=== PATIENT | female | born 1935 | race Hispanic/Latino ===

== ENCOUNTER 2017-10-12 17:43 | Emergency (ER) | payer MEDICAID, OTHER ==
[~2017-10-12 17:43] MED LIST: AMLO10TA4 PO; ASPI-1005 PO; BENA40TA3 PO; METO25TA6 PO; METO50TA18 PO; WARF3TAB59 PO; WARF4TAB72 PO
[2017-10-12 18:31] LABS: APPEARANCE,URINE Clear (CLEAR); BILIRUBIN,URINE Negative (NEGATIVE); COLOR,URINE Yellow (YELLOW); GLUCOSE, URINE (UA) Negative (NEGATIVE); KETONES,URINE Negative (NEGATIVE); LEUKOCYTE ESTERASE ,URINE Moderate (NEGATIVE); NITRATE,URINE Negative (NEGATIVE); OCCULT BLOOD,URINE Trace (NEGATIVE); PH,URINE 5.5 (5.0-8.0); PROTEIN,URINE Negative (NEGATIVE); UROBILINOGEN,URINE 0.2 mg/dL (0.2-1.0)
[2017-10-12 18:33] LABS: BASOPHILS % (AUTO) 0.7 % (0.0-5.0); EOSINOPHILS % (AUTO) 2.2 % (0.0-8.0); HEMATOCRIT 40.1 % (36-48); MEAN CORPUSCULAR HEMOGLOBIN 33.9 pg (27.0-33.0); MEAN CORPUSCULAR HGB CONC 34.9 g/dL (32.0-36.0); MEAN CORPUSCULAR VOLUME 97.1 fL (79-99); MONOCYTES % (AUTO) 10.2 % (3.0-13.0); NEUTROPHILS % (AUTO) 57.9 % (40.0-77.0); PLATELET COUNT (AUTO) 272 K/uL (130-400); RED BLOOD CELL COUNT(AUTO) 4.13 MIL/uL (4.00-5.50); RED CELL DISTRIBUTION WIDTH 13.4 % (11.0-15.5); WHITE BLOOD COUNT (AUTO) 5.1 K/uL (4.8-10.8)
[2017-10-12 18:45] LABS: BACTERIA,URINE Rare /HPF (None Seen); RBC,URINE 0-1 /HPF (0-1)
[2017-10-12 18:46] LABS: CREATININE 1.4 mg/dL (0.5-1.5); POTASSIUM 5.4 mmol/L (3.5-5.1)
[2017-10-12 18:51] LABS: BILIRUBIN,TOTAL 0.4 mg/dL (0.2-1.0); TOTAL PROTEIN, SERUM 6.7 g/dL (6.0-8.3)
[2017-10-12 18:55] LABS: B-TYPE NATRIURETIC PEPTIDE 437 pg/mL (0-100)
== END 2017-10-12 21:48 | disposition home or self-care (01) ==
LOC: EDH 17:43
DX: B34.9 Viral infection, unspecified (principal); J30.9 Allergic rhinitis, unspecified; E11.9 Type 2 diabetes mellitus without complications; E78.5 Hyperlipidemia, unspecified; I10 Essential (primary) hypertension; I48.91 Unspecified atrial fibrillation; I25.10 Atherosclerotic heart disease of native coronary artery without angina pectoris
CPT/HCPCS: 36415; 70450; 71045; 80053; 81001; 82948; 83880; 84484; 85025; 87804; 93005

== ENCOUNTER 2018-04-11 17:04 | Inpatient (IN) | payer MEDICAID, OTHER ==
[~2018-04-11] VITALS: Ht 149.9 cm; Wt 72.7 kg
[~2018-04-11 17:04] MED LIST changes: -BENA40TA3 PO; +BENA40TA9 PO
[2018-04-11 17:16] LABS: BASOPHILS % (AUTO) 0.7 % (0.0-5.0); EOSINOPHILS % (AUTO) 3.1 % (0.0-8.0); HEMATOCRIT 44.3 % (36-48); LYMPHOCYTES % (AUTO) 27.6 % (21.0-51.0); MEAN CORPUSCULAR HEMOGLOBIN 34.2 pg (27.0-33.0); MEAN CORPUSCULAR HGB CONC 34.1 g/dL (32.0-36.0); MEAN CORPUSCULAR VOLUME 100.3 fL (79-99); MONOCYTES % (AUTO) 10.1 % (3.0-13.0); NEUTROPHILS % (AUTO) 58.5 % (40.0-77.0); NUCLEATED RED BLOOD CELLS 0.1 % (0.0-0.19); PLATELET COUNT (AUTO) 180 K/uL (130-400); RED BLOOD CELL COUNT(AUTO) 4.42 MIL/uL (4.00-5.50); RED CELL DISTRIBUTION WIDTH 13.3 % (11.0-15.5); WHITE BLOOD COUNT (AUTO) 5.2 K/uL (4.8-10.8)
[2018-04-11 17:29] LABS: INR 2.46 (0.85-1.15); PARTIAL THROMBOPLASTIN TIME 35.8 SEC (26.3-35.5); PROTHROMBIN TIME 25.4 SEC (9.6-11.6)
[2018-04-11 17:35] LABS: CREATININE 1.4 mg/dL (0.5-1.5); POTASSIUM 5.2 mmol/L (3.5-5.1)
[2018-04-11] MEDS ORDERED: NITROGLYCERIN 0.4 MG SL TAB SL ONE (17:36)
[2018-04-11] MEDS ORDERED: ASPIRIN 81MG TAB.CHEW ONE (17:36)
[2018-04-11 17:37] LABS: ALBUMIN 3.3 g/dL (3.5-5.0); BILIRUBIN,TOTAL 0.5 mg/dL (0.2-1.0); TOTAL PROTEIN, SERUM 7.5 g/dL (6.0-8.3)
[2018-04-11] MEDS ORDERED: ONDANSETRON HCL 4 MG/2 ML VIAL ONE (19:02)
[2018-04-11] MEDS ORDERED: MORPHINE SULFATE 2 MG/ML 1ML SYG ONE (19:03)
[2018-04-11] MEDS ORDERED: MORPHINE SULFATE 2 MG/ML 1ML SYG IV PRN (20:30)
[2018-04-11] MEDS ORDERED: NITROGLYCERIN 0.4 MG SL TAB SL PRN (20:30)
[2018-04-11] MEDS ORDERED: ACETAMINOPHEN 325 MG TAB PO PRN (20:30)
[2018-04-11 22:30] VITALS: BP 136/89
[2018-04-11] MEDS ORDERED: CARV12.511 PO (22:54)
[2018-04-11] MEDS ORDERED: LISI2.5T2 PO (22:54)
[2018-04-11] MEDS ORDERED: ATOR10TA69 PO (22:54)
[2018-04-11] MEDS ORDERED: SPIR25TA6 PO (22:54)
[2018-04-11] MEDS: SODIUM CHLORIDE 0.9% 1000ML 1,000 ML IV SCH (23:16)
[2018-04-11 23:29] LABS: CREATINE KINASE, TOTAL 61 U/L (21-232); MYOGLOBIN 133 ng/mL (10-92)
[2018-04-12] VITALS (9 sets, daily range): BP systolic 121–154; BP diastolic 64–112
[2018-04-12] MEDS: METOPROLOL TARTRATE 25 MG TAB PO SCH ×2 (01:23→09:18)
[2018-04-12] MEDS: MORPHINE SULFATE 4 MG/1ML SYG IV PRN ×2 (04:21→09:20)
[2018-04-12] MEDS: SODIUM CHLORIDE 0.9% 1000ML 1,000 ML IV SCH ×3 (04:28→20:28)
[2018-04-12 05:12] LABS: BASOPHILS % (AUTO) 0.5 % (0.0-5.0); HEMATOCRIT 41.2 % (36-48); LYMPHOCYTES % (AUTO) 30.6 % (21.0-51.0); MEAN CORPUSCULAR HGB CONC 33.2 g/dL (32.0-36.0); MEAN CORPUSCULAR VOLUME 99.4 fL (79-99); MONOCYTES % (AUTO) 8.8 % (3.0-13.0); NEUTROPHILS % (AUTO) 57.1 % (40.0-77.0); NUCLEATED RED BLOOD CELLS 0.1 % (0.0-0.19); PLATELET COUNT (AUTO) 150 K/uL (130-400); RED BLOOD CELL COUNT(AUTO) 4.15 MIL/uL (4.00-5.50); RED CELL DISTRIBUTION WIDTH 13.3 % (11.0-15.5); WHITE BLOOD COUNT (AUTO) 4.8 K/uL (4.8-10.8)
[2018-04-12 05:35] LABS: BILIRUBIN,TOTAL 0.6 mg/dL (0.2-1.0); CREATININE 1.4 mg/dL (0.5-1.5); POTASSIUM 4.7 mmol/L (3.5-5.1); TOTAL PROTEIN, SERUM 6.4 g/dL (6.0-8.3)
[2018-04-12 05:36] LABS: CREATINE KINASE, TOTAL 62 U/L (21-232); MYOGLOBIN 95 ng/mL (10-92)
[2018-04-12] MEDS ORDERED: ASPIRIN 81MG TAB.CHEW PO SCH (09:00)
[2018-04-12] MEDS: PANTOPRAZOLE SODIUM 40 MG TABLET.DR PO SCH (09:18)
[2018-04-12] MEDS: ONDANSETRON HCL 4 MG/2 ML VIAL IV PRN ×2 (10:19→17:50)
[2018-04-12] MEDS: NAPROXEN 250 MG TAB PO SCH ×2 (12:09→20:27)
[2018-04-12] MEDS: TRAMADOL HCL 50 MG TABLET PO PRN (17:51)
[2018-04-12] MEDS: CARVEDILOL 12.5 MG TABLET PO SCH (20:28)
[2018-04-12] MEDS ORDERED: ATORVASTATIN CALCIUM 10 MG TABLET PO SCH (21:00)
[2018-04-12] MEDS ORDERED: CARVEDILOL 12.5 MG TABLET PO SCH (21:00)
[2018-04-13] VITALS (9 sets, daily range): BP systolic 110–148; BP diastolic 57–92
[2018-04-13] MEDS: TRAMADOL HCL 50 MG TABLET PO PRN ×2 (00:21→07:56)
[2018-04-13] MEDS: SODIUM CHLORIDE 0.9% 1000ML 1,000 ML IV SCH (03:41)
[2018-04-13 04:01] LABS: BASOPHILS % (AUTO) 0.4 % (0.0-5.0); HEMATOCRIT 40.3 % (36-48); LYMPHOCYTES % (AUTO) 24.4 % (21.0-51.0); MEAN CORPUSCULAR HEMOGLOBIN 34.2 pg (27.0-33.0); MEAN CORPUSCULAR HGB CONC 34.6 g/dL (32.0-36.0); MONOCYTES % (AUTO) 7.4 % (3.0-13.0); NEUTROPHILS % (AUTO) 66.8 % (40.0-77.0); PLATELET COUNT (AUTO) 178 K/uL (130-400); RED BLOOD CELL COUNT(AUTO) 4.08 MIL/uL (4.00-5.50); WHITE BLOOD COUNT (AUTO) 5.6 K/uL (4.8-10.8)
[2018-04-13 04:09] LABS: INR 2.17 (0.85-1.15); PROTHROMBIN TIME 22.4 SEC (9.6-11.6)
[2018-04-13 04:24] LABS: ALBUMIN 3.1 g/dL (3.5-5.0); BILIRUBIN,TOTAL 0.6 mg/dL (0.2-1.0); CREATININE 1.7 mg/dL (0.5-1.5); POTASSIUM 4.7 mmol/L (3.5-5.1); TOTAL PROTEIN, SERUM 6.6 g/dL (6.0-8.3)
[2018-04-13] MEDS ORDERED: SPIRONOLACTONE 25 MG TAB PO SCH (09:00)
[2018-04-13] MEDS ORDERED: ENOXAPARIN SODIUM 40 MG/0.4 ML SYRINGE SQ SCH (09:00)
[2018-04-13] MEDS ORDERED: LISINOPRIL 2.5 MG TABLET PO SCH (09:00)
[2018-04-13] MEDS ORDERED: ASPIRIN 81MG TAB.CHEW PO SCH (09:00)
[2018-04-13] MEDS: PANTOPRAZOLE SODIUM 40 MG TABLET.DR PO SCH (10:00)
[2018-04-13] MEDS: NAPROXEN 250 MG TAB PO SCH (10:00)
[2018-04-13] MEDS: CARVEDILOL 12.5 MG TABLET PO SCH (10:01)
[2018-04-13] MEDS: ONDANSETRON HCL 4 MG/2 ML VIAL IV PRN ×2 (10:47→13:58)
[2018-04-15] MEDS ORDERED: WARFARIN SODIUM 2 MG TAB PO SCH (16:00)
[2018-04-16] MEDS ORDERED: WARFARIN SODIUM 1 MG TAB PO SCH (16:00)
== END 2018-04-13 21:10 | disposition home or self-care (01) | DRG 206 ==
LOC: EDH 17:04 → EDHIP 17:05 → 2DH 22:43
PROVIDERS: ADMIT Hospitalist; ATTEND Hospitalist
DX: M94.0 Chondrocostal junction syndrome [Tietze] (principal); I13.0 Hypertensive heart and chronic kidney disease with heart failure and stage 1 through stage 4 chronic kidney disease, or unspecified chronic kidney disease; R07.89 Other chest pain; M25.512 Pain in left shoulder; E87.5 Hyperkalemia; I48.2 Chronic atrial fibrillation; E86.0 Dehydration; E11.22 Type 2 diabetes mellitus with diabetic chronic kidney disease; E66.9 Obesity, unspecified; E78.5 Hyperlipidemia, unspecified; E11.69 Type 2 diabetes mellitus with other specified complication; I25.10 Atherosclerotic heart disease of native coronary artery without angina pectoris; I25.5 Ischemic cardiomyopathy; N18.3 Chronic kidney disease, stage 3 (moderate); I50.9 Heart failure, unspecified; Z96.652 Presence of left artificial knee joint; Z68.32 Body mass index [BMI] 32.0-32.9, adult; I25.2 Old myocardial infarction; Z79.899 Other long term (current) drug therapy; Z79.01 Long term (current) use of anticoagulants; Z95.5 Presence of coronary angioplasty implant and graft; Z86.73 Personal history of transient ischemic attack (TIA), and cerebral infarction without residual deficits; Z83.3 Family history of diabetes mellitus; Z82.49 Family history of ischemic heart disease and other diseases of the circulatory system; Z82.3 Family history of stroke; Z82.5 Family history of asthma and other chronic lower respiratory diseases; Z82.0 Family history of epilepsy and other diseases of the nervous system; Z80.9 Family history of malignant neoplasm, unspecified
CPT/HCPCS: 36415; 70450; 71045; 73030; 80053; 80061; 82550; 82948; 83874; 84484; 85025; 85378; 85610; 85730; 93005; 93880; J2270; J2405; J7030

== ENCOUNTER 2018-08-12 11:36 | Emergency (ER) | payer MEDICAID, OTHER ==
[~2018-08-12 11:36] MED LIST changes: -AMLO10TA4 PO; +ATOR10TA69 PO; -BENA40TA9 PO; +CARV12.511 PO; +LISI2.5T2 PO; -METO25TA6 PO; -METO50TA18 PO; +SPIR25TA6 PO
== END 2018-08-12 14:59 | disposition home or self-care (01) ==
LOC: EDH 11:36
DX: S20.211A Contusion of right front wall of thorax, initial encounter (principal); S60.211A Contusion of right wrist, initial encounter; I48.91 Unspecified atrial fibrillation; I25.10 Atherosclerotic heart disease of native coronary artery without angina pectoris; E11.9 Type 2 diabetes mellitus without complications; E78.5 Hyperlipidemia, unspecified; I10 Essential (primary) hypertension; Z79.01 Long term (current) use of anticoagulants; W18.39XA Other fall on same level, initial encounter; Y93.01 Activity, walking, marching and hiking; Y92.89 Other specified places as the place of occurrence of the external cause; Y99.8 Other external cause status
CPT/HCPCS: 70450; 71250; 72125; 73110; 93005

== ENCOUNTER 2019-12-05 12:42 | Inpatient (IN) | payer MEDICAID, OTHER ==
[2019-12-05] VITALS (30 sets, daily range): BP systolic 80–125; BP diastolic 48–84
[2019-12-05] MEDS ORDERED: METOPROLOL TARTRATE 1 MG/ML 5ML VIAL IV ONE (12:56)
[2019-12-05] MEDS ORDERED: ASPIRIN 325 MG TABLET ONE (13:01)
[2019-12-05] MEDS ORDERED: IOHEXOL 350 MG/ML 100ML INFUS..BTL IV ONE (13:18)
[2019-12-05] MEDS ORDERED: NITROGLYCERIN 2 MG/VIAL VIAL IV ONE (13:18)
[2019-12-05] MEDS ORDERED: IOHEXOL-350 50ML VIAL IV ONE (13:18)
[2019-12-05] MEDS ORDERED: LIDOCAINE HCL 2% 20ML ONE (13:18)
[2019-12-05] MEDS ORDERED: HEPARIN SODIUM 1000UNIT/ML 10ML VIAL ONE (13:18)
[2019-12-05 13:37] LABS: BASOPHILS % (AUTO) 0.4 % (0.0-5.0); EOSINOPHILS % (AUTO) 1.4 % (0.0-8.0); HEMATOCRIT 40.1 % (36-48); LYMPHOCYTES % (AUTO) 21.4 % (21.0-51.0); MEAN CORPUSCULAR HEMOGLOBIN 33.8 pg (27.0-33.0); MEAN CORPUSCULAR HGB CONC 33.7 g/dL (32.0-36.0); MEAN CORPUSCULAR VOLUME 100.3 fL (79-99); MONOCYTES % (AUTO) 9.4 % (3.0-13.0); NEUTROPHILS % (AUTO) 67.2 % (40.0-77.0); PLATELET COUNT (AUTO) 171 K/uL (130-400); RED CELL DISTRIBUTION WIDTH 13.2 % (11.0-15.5); WHITE BLOOD COUNT (AUTO) 5.6 K/uL (4.8-10.8)
[2019-12-05] MEDS ORDERED: IOHEXOL-350 75 ML VIAL IV ONE (13:45)
[2019-12-05 13:46] LABS: INR 1.44 (0.85-1.15); PARTIAL THROMBOPLASTIN TIME 27.4 SEC (26.3-35.5); PROTHROMBIN TIME 15.3 SEC (9.6-11.6)
[2019-12-05 13:56] LABS: TROPONIN I 0.12 ng/mL (0.00-0.06)
[2019-12-05] MEDS ORDERED: AMIODARONE HCL 50 MG/ML 3 ML VIAL ONE (14:05)
[2019-12-05 14:16] LABS: CREATININE 1.8 mg/dL (0.5-1.5); POTASSIUM 5.5 mmol/L (3.5-5.1)
[2019-12-05 14:23] LABS: ALBUMIN 3.3 g/dL (3.5-5.0); BILIRUBIN,TOTAL 0.9 mg/dL (0.2-1.0); TOTAL PROTEIN, SERUM 6.9 g/dL (6.0-8.3)
[2019-12-05] MEDS ORDERED: HEPARIN 25000 UNITS/250 ML D5W 250 ML IV SCH ×3 (14:30→18:30)
[2019-12-05] MEDS ORDERED: MORPHINE SULFATE 5 MG/ML VIAL IVP SCH ×2 (14:30)
[2019-12-05] MEDS ORDERED: ACETAMINOPHEN-CODEINE 300/30MG TAB PO PRN ×2 (14:30)
[2019-12-05] MEDS ORDERED: ONDANSETRON HCL 4 MG/2 ML VIAL IVP SCH (14:30)
[2019-12-05] MEDS ORDERED: ONDANSETRON HCL 4 MG/2 ML VIAL IVP PRN (14:30)
[2019-12-05] MEDS ORDERED: NOREPINEPHRINE BITARTRATE 1 MG/1 ML ML IV ONE (14:30)
[2019-12-05] MEDS ORDERED: TEMAZEPAM 30 MG CAP PO PRN (14:30)
[2019-12-05] MEDS ORDERED: CLOPIDOGREL BISULFATE 300 MG TAB ONE (15:04)
[2019-12-05] MEDS ORDERED: HEPARIN 25000 UNITS/250 ML D5W 250 ML IV ONE (15:07)
[2019-12-05 15:18] LABS: ABG BASE EXCESS -8.2 mmol/L (-2.0-3.0); ABG HCO3 16.2 mmol/L (21.0-28.0); ABG OXYGEN SATURATION 99.3 % (95.0-99.0); ABG PCO2 31 mmHg (32-45)
[2019-12-05] MEDS ORDERED: FENTANYL CITRATE PF 50 MCG/1 ML 2ML VIAL ONE (15:25)
[2019-12-05] MEDS ORDERED: MIDAZOLAM HCL 1 MG/ML 2ML VIAL ONE (15:25)
[2019-12-05] MEDS ORDERED: FUROSEMIDE 10 MG/ML 4ML VIAL IV SCH (15:30)
[2019-12-05] MEDS ORDERED: MIDAZOLAM HCL 1 MG/ML 2ML VIAL IVP PRN (15:30)
[2019-12-05] MEDS ORDERED: FENTANYL CITRATE PF 50 MCG/1 ML 2ML VIAL IVP PRN (15:30)
[2019-12-05] MEDS ORDERED: FENTANYL 1000MCG+NS 100ML 100 ML ONE (15:59)
[2019-12-05] MEDS ORDERED: FENTANYL CITRATE PF 50 MCG/1 ML 2ML VIAL IVP ONE (16:50)
[2019-12-05] MEDS ORDERED: MIDAZOLAM HCL 1 MG/ML 2ML VIAL IVP ONE (16:50)
[2019-12-05] MEDS ORDERED: ACETAMINOPHEN 325 MG TAB NG PRN (18:30)
[2019-12-05] MEDS: CARVEDILOL 6.25 MG TABLET PO SCH ×2 (20:29→23:12)
[2019-12-05] MEDS: INSULIN HUMULIN R 100 UNIT/ML 3ML SQ SCH (23:53)
[2019-12-06] VITALS (31 sets, daily range): BP systolic 78–135; BP diastolic 45–81
--- NOTE | 2019-12-06 02:10 | NUR ---
Emerson Al AUTO BATTERY BUILDER for [employer] called for hypotension and tachycardia. Metoprolol ordered for heart rate control.
[2019-12-06] MEDS ORDERED: METOPROLOL TARTRATE 1 MG/ML 5ML VIAL IV ONE (02:19)
[2019-12-06] MEDS ORDERED: METOPROLOL TARTRATE 1 MG/ML 5ML VIAL IV SCH (03:00)
[2019-12-06] MEDS: FUROSEMIDE 10 MG/ML 4ML VIAL IV SCH ×2 (04:07→14:14)
--- NOTE | 2019-12-06 04:30 | NUR ---
Emerson Al COP WINDER called for hypotension while norepinepherine running at 0.8 mcg/kg/min. Phenylepherine started.
[2019-12-06 04:40] LABS: BASOPHILS % (AUTO) 0.2 % (0.0-5.0); HEMATOCRIT 35.2 % (36-48); LYMPHOCYTES % (AUTO) 19.4 % (21.0-51.0); MEAN CORPUSCULAR VOLUME 100.3 fL (79-99); MONOCYTES % (AUTO) 8.3 % (3.0-13.0); NEUTROPHILS % (AUTO) 71.5 % (40.0-77.0); PLATELET COUNT (AUTO) 163 K/uL (130-400); RED BLOOD CELL COUNT(AUTO) 3.51 MIL/uL (4.00-5.50); RED CELL DISTRIBUTION WIDTH 13.5 % (11.0-15.5); WHITE BLOOD COUNT (AUTO) 11.1 K/uL (4.8-10.8)
[2019-12-06] MEDS ORDERED: PHENYLEPHRINE HCL 10 MG/ML 1ML VIAL IV ONE (04:46)
[2019-12-06 05:35] LABS: CREATININE 2.7 mg/dL (0.5-1.5)
--- NOTE | 2019-12-06 05:35 | NUR ---
Sedation has been off since 299, patient opens eyes to painful stimuli and shouting, moves right arm, wiggles bilateral feet to stimuli, unable to move left arm or respond to painful stimuli.
[2019-12-06 05:49] LABS: POTASSIUM 7.2 mmol/L (3.5-5.1)
[2019-12-06] MEDS ORDERED: FUROSEMIDE 10 MG/ML 4ML VIAL IV SCH (06:00)
--- NOTE | 2019-12-06 06:00 | NUR ---
Emerson Al GATE ATTENDANT called for potassium 7.2. Orders received and carried out.
[2019-12-06] MEDS: INSULIN HUMULIN R 100 UNIT/ML 3ML SQ SCH ×4 (06:05→23:19)
[2019-12-06] MEDS ORDERED: SODIUM BICARB 50MEQ 50ML VIAL IV SCH (06:18)
[2019-12-06] MEDS ORDERED: SODIUM BICARB 50MEQ 50ML VIAL ONE (06:35)
[2019-12-06] MEDS ORDERED: INSULIN HUMULIN R 100 UNIT/ML 3ML IV SCH (06:40)
[2019-12-06] MEDS ORDERED: DEXTROSE 50%-WATER 50 ML DISP.SYRIN IV SCH (06:41)
[2019-12-06] MEDS ORDERED: CALCIUM GLUCONATE 1 GM/10 ML VIAL IV SCH (06:41)
[2019-12-06] MEDS ORDERED: SODIUM POLYSTYRENE SULFONATE 15 GM/60 ML ML PO SCH (06:42)
[2019-12-06 07:30] LABS: ABG BASE EXCESS -1.1 mmol/L (-2.0-3.0); ABG HCO3 22.2 mmol/L (21.0-28.0); ABG OXYGEN SATURATION 98.3 % (95.0-99.0); ABG PCO2 32 mmHg (32-45)
[2019-12-06] MEDS ORDERED: AMIODARONE HCL 900 MG in DEXTROSE 5%-WATER 500 ML IV SCH (07:30)
[2019-12-06] MEDS ORDERED: AMIODARONE HCL 150 MG in DEXTROSE 5%-WATER 100 ML IV SCH ×2 (07:30→08:45)
[2019-12-06] MEDS: NOREPINEPHRINE 4MG/NS 250ML 250 ML IV SCH ×7 (07:55→22:46)
--- NOTE | 2019-12-06 08:00 | NUR ---
DR. PIERCE HAS BEEN GIVEN UPDATE ON PT AND MEDS THAT WERE ORDERED. HEPARIN IS OFF DUE TO ELEVATED PTT.
[2019-12-06] MEDS ORDERED: AMIODARONE HCL 450 MG in DEXTROSE 5%-WATER 250 ML IV SCH (08:45)
[2019-12-06] MEDS ORDERED: PANTOPRAZOLE 40 MG/VIAL IVP SCH (09:00)
[2019-12-06] MEDS ORDERED: PANTOPRAZOLE SODIUM 40 MG TABLET.DR PO SCH (09:00)
[2019-12-06] MEDS: PHENYLEPHRINE HCL 10 MG in SODIUM CHLORIDE 0.9% 250 ML IV PRN ×5 (09:46→22:44)
[2019-12-06] MEDS: AMIODARONE HCL 450 MG in DEXTROSE 5%-WATER 250 ML IV SCH (09:53)
[2019-12-06] MEDS ORDERED: SODIUM CHLORIDE 0.9% 500ML 500 ML IV ONE (09:55)
--- NOTE | 2019-12-06 10:00 | NUR ---
PT'S BLOOD PRESSURE HAS BEEN FLUCTUATING FROM SBP 70'S TO 90'S WITH SHANNON AND LEVO DRIP. WILL KEEP PATIENT MONITORING FOR MEDS AND SBP.
[2019-12-06] MEDS: CLOPIDOGREL BISULFATE 75 MG TAB PO SCH (11:23)
[2019-12-06] MEDS: ASPIRIN 81MG TAB.CHEW PO SCH (11:23)
--- NOTE | 2019-12-06 12:00 | NUR ---
SON CAME IN TO VISIT AND NURSING STAFF DISCUSSED PT'S PRESENT STATUS AND ALSO ADVISED PT'S SON THAT HE NEEDED TO THINK ABOUT POSSIBLE WITHDRAWING OF MEDS AND VENTILATOR.
[2019-12-06 14:13] LABS: APPEARANCE,URINE Cloudy (CLEAR); BILIRUBIN,URINE Negative (NEGATIVE); COLOR,URINE Yellow (YELLOW); GLUCOSE, URINE (UA) Negative (NEGATIVE); KETONES,URINE Negative (NEGATIVE); LEUKOCYTE ESTERASE ,URINE Large (NEGATIVE); NITRATE,URINE Negative (NEGATIVE); OCCULT BLOOD,URINE Moderate (NEGATIVE); PROTEIN,URINE Negative (NEGATIVE)
[2019-12-06 14:20] LABS: CREATININE,URINE RANDOM 91 mg/dL (30-135); SODIUM,URINE RANDOM 44 mmol/l (40-220)
[2019-12-06] MEDS: SODIUM POLYSTYRENE SULFONATE 15 GM/60 ML ML PO SCH ×2 (14:30→20:04)
[2019-12-06 14:36] LABS: BACTERIA,URINE Few /HPF (None Seen)
[2019-12-06 14:37] LABS: SQUAMOUS EPITHELIAL CELL,UR Few /HPF (0-2)
--- NOTE | 2019-12-06 15:00 | NUR ---
FAMILY MEMBERS WILL CALL TO CHECK ON PATIENT AND UPDATES WERE GIVEN.
[2019-12-06 18:12] LABS: CREATININE 3.4 mg/dL (0.5-1.5); POTASSIUM 5.4 mmol/L (3.5-5.1)
--- NOTE | 2019-12-06 18:41 | NUR ---
D/C PLAN CM spoke to patient's son named she [phone]. States patient lives with daughter named Merry. Reports pt was semi ind. with ADL's prior to being hospitalized. Denies having any DME. Reports strong family support. Plan to home. CM to f/u. Addendum: 12/06/19 at 1842 by KIRAN SIBLEY CM Amended: Links added.
--- NOTE | 2019-12-06 19:00 | NUR ---
ASSESSMENT PT RESTING IN BED, RESTLESS, NO SEDATION NOTED, ON VASO PRESSORS - LEVOPHED AND SHANNON. ETT - 7.5 21 CM AT THE LIP, AC-12/40%/450/ PEEP 5. OGT 16 FR CLAMPED WITH DRIED BLOOD NOTED TO LIPS AND ORAL CAVITY, EMESIS X 1 LARGE BLOOD CLOT. 16FR JONES CATH INPLACE WITH CLOUDY YELLOW URINE NOTED. SCD IN PLACE, BEDREST. POSITIONING VERY LIMITED D/T RIGHT GROIN SHEATH.
--- NOTE | 2019-12-06 20:15 | NUR ---
FAMILY UP-DATE DAUGHTER CALLED REQUESTING UP-DATE ON PT STATUS. QUESTIONS ASKED AND ANSWERED.
--- NOTE | 2019-12-06 21:00 | NUR ---
FAMILY UP-DATE GRANDDAUGHTER CALLED REQUESTING UP-DATE ON PT STATUS. QUESTIONS ASKED AND ANSWERED.
[2019-12-06 21:07] LABS: INR 2.69 (0.85-1.15)
[2019-12-06 21:18] LABS: PARTIAL THROMBOPLASTIN TIME 93.4 SEC (26.3-35.5)
--- NOTE | 2019-12-06 22:18 | NUR ---
FAMILY UP-DATE SON CALLED REQUESTING UP-DATE ON PT STATUS. QUESTIONS ASKED AND ANSWERED.
[2019-12-07] VITALS (10 sets, daily range): BP systolic 75–130; BP diastolic 44–76
[2019-12-07] MEDS: AMIODARONE HCL 450 MG in DEXTROSE 5%-WATER 250 ML IV SCH (01:28)
[2019-12-07] MEDS: PHENYLEPHRINE HCL 10 MG in SODIUM CHLORIDE 0.9% 250 ML IV PRN (01:29)
[2019-12-07] MEDS: NOREPINEPHRINE 4MG/NS 250ML 250 ML IV SCH ×3 (01:30→06:54)
[2019-12-07] MEDS: FUROSEMIDE 10 MG/ML 4ML VIAL IV SCH (02:01)
--- NOTE | 2019-12-07 03:50 | NUR ---
FAMILY UP-DATE GRANDDAUGHTER CALLED REQUESTING UP-DATE ON PT STATUS. QUESTIONS ASKED AND ANSWERED.
[2019-12-07 04:02] LABS: BASOPHILS % (AUTO) 0.2 % (0.0-5.0); EOSINOPHILS % (AUTO) 0.3 % (0.0-8.0); HEMATOCRIT 24.1 % (36-48); LYMPHOCYTES % (AUTO) 13.2 % (21.0-51.0); MEAN CORPUSCULAR HGB CONC 33.2 g/dL (32.0-36.0); MEAN CORPUSCULAR VOLUME 102.6 fL (79-99); MONOCYTES % (AUTO) 9.9 % (3.0-13.0); NEUTROPHILS % (AUTO) 75.9 % (40.0-77.0); NUCLEATED RED BLOOD CELLS 0.5 % (0.0-0.19); PLATELET COUNT (AUTO) 109 K/uL (130-400); RED BLOOD CELL COUNT(AUTO) 2.35 MIL/uL (4.00-5.50); RED CELL DISTRIBUTION WIDTH 14.2 % (11.0-15.5); WHITE BLOOD COUNT (AUTO) 12.3 K/uL (4.8-10.8)
[2019-12-07 04:33] LABS: INR 2.74 (0.85-1.15); PARTIAL THROMBOPLASTIN TIME 57.9 SEC (26.3-35.5); PROTHROMBIN TIME 28.5 SEC (9.6-11.6)
[2019-12-07 04:59] LABS: CREATININE 3.9 mg/dL (0.5-1.5); MAGNESIUM 1.1 mg/dL (1.80-2.40); PHOSPHORUS 3.8 mg/dL (2.5-4.9); POTASSIUM 5.9 mmol/L (3.5-5.1); THYROID STIMULATING HORMONE 3.28 uIU/mL (0.36-3.74)
--- NOTE | 2019-12-07 05:30 | NUR ---
[employer] TENDER W[employer]ING [employer]ANA MADE AWARE OF DROP IN HGB TO 8, CO2 NOW 9, MAG LEVEL OF 1.1,, DECREASE IN O2 SAT LEVO AND SHANNON GTTS BP. NO NEW ORDERS RECEIVED AT PRESENT
[2019-12-07] MEDS: INSULIN HUMULIN R 100 UNIT/ML 3ML SQ SCH (06:00)
--- NOTE | 2019-12-07 06:00 | NUR ---
FAMILY PLACED CALL TO SON NATY TO NOTIFYOF CHANGE IN VITALS, NO ANSWER, MESSAGE LEFT IN [place]
--- NOTE | 2019-12-07 06:10 | NUR ---
FAMILY PLACED CALL TO DAUGHTER ROSE TO NOTIFY OF CHANGE IN VITALS, DAUGHTER INFORMED SHE COME BEDSIDE. STATED SHE WAS ON HER WAY
[2019-12-07] MEDS ORDERED: MAGNESIUM 2GM PREMIX 50ML 50 ML IV PRN (06:45)
--- NOTE | 2019-12-07 07:00 | NUR ---
Received pt on drips at rates charted in intake and output. No titration of drips done.
[2019-12-07 08:14] LABS: ABG BASE EXCESS -15.5 mmol/L (-2.0-3.0); ABG OXYGEN SATURATION 98.3 % (95.0-99.0); ABG PCO2 24 mmHg (32-45)
[2019-12-07] MEDS ORDERED: SODIUM BICARB 50MEQ 50ML VIAL ONE (08:19)
[2019-12-07] MEDS: CLOPIDOGREL BISULFATE 75 MG TAB PO SCH (08:25)
[2019-12-07] MEDS: ASPIRIN 81MG TAB.CHEW PO SCH (08:25)
[2019-12-07] MEDS ORDERED: SODIUM BICARB 50MEQ 50ML VIAL IV SCH (08:30)
[2019-12-07] MEDS ORDERED: MORPHINE SULFATE 2 MG/ML 1ML SYG IVP PRN (09:00)
[2019-12-07] MEDS ORDERED: ENOXAPARIN SODIUM 30 MG/0.3 ML SQ SCH (09:00)
[2019-12-07] MEDS ORDERED: PANTOPRAZOLE 40 MG/VIAL IVP SCH (09:00)
[2019-12-07] MEDS ORDERED: LORAZEPAM 2 MG/ML 1 ML VIAL IVP PRN (09:00)
--- NOTE | 2019-12-07 09:05 | NUR ---
Withdrawal of care decision Pt's adult children decided to proceed with withdrawal of care at 0905. Appropriate paperwork completed and signed.
--- NOTE | 2019-12-07 09:10 | NUR ---
ISIS Zarate updated on pt status at 09
--- NOTE | 2019-12-07 10:20 | NUR ---
Removal of life support Removal of ventilator support by RT after first dose of morphine given. Family brought back into room. Vasopressors and amiodarone drips turned off. Family given emotional and spiritual support. All questions answered.
[2019-12-07] MEDS ORDERED: ETOMIDATE 2 MG/ML 10 ML VIAL IVP ONE (10:41)
--- NOTE | 2019-12-07 10:42 | NUR ---
PRONOUNCEMENT CALLED TO ROOM BY PRIMARY NURSE PT IS DNR. WITHDRAWAL OF LIFE SUPPORT DONE AT 1020AM. PT IS UNRESPONSIVE, NO HEART TONES, NO RESPIRATIONS. SON AT BEDSIDE, PT PRONOUNCED AT THIS TIME.
--- NOTE | 2019-12-07 10:45 | NUR ---
SON CALLED TO CHECK ON PATIENT AND WAS GIVEN UPDATE AND THE NEED FOR PATIENT TO REQUIRE MEDS FOR SBP THAT HAD FLUCTUATING FORM THE 70'S TO 90'S. DNR STATUS WAS DISCUSSED AND SON SAID THAT HE NEEDED TO DISCUSS WITH ALL HER SONS AND DAUGHTERS AND THAT THEY WERE 7 OF THEM. NURSING STAFF STATED THAT THEY COULD DISCUSS IT AND LET NURSING STAFF KNOW. Addendum: 12/07/19 at 1249 by LIAT PACHECO RN RN THIS NOTE WAS FOR 12/06/19
--- NOTE | 2019-12-07 10:47 | NUR ---
Physician notifications Dr. Quiñones informed earlier of family's intention to withdraw life support, no need to call. Dr. Judd informed of at 1047. Dr. Paulette Griffiths notified at 1047, agrees to sign certificate.
--- NOTE | 2019-12-07 11:17 | NUR ---
ISIS notified of time of cardiac .
--- NOTE | 2019-12-07 11:30 | NUR ---
FAMILY HAVE DISCUSSED THE CODE STATUS AND THEY ALL HAVE AGREED FOR PT TO BE DNR. MANAGER OF CLINICAL HAD BEEN ADVISED IF POSSIBLE FOR FAMILY TO VISIT. THE MANAGER OF CLINICAL STATED THAT ONE FAMILY MEMBER COULD COME IN AND THEY WILL DECIDE WHICH ONE OF THEM COULD COME AND SEE PT.
== END 2019-12-07 10:42 | disposition expired | DRG 250 ==
LOC: EDH 12:42 → OBSVTOIN 12:43 → EDHIP 12:43 → 2CH 15:10
PROVIDERS: ADMIT Internal Medicine; ATTEND Internal Medicine
PROC: 5A1945Z Respiratory Ventilation, 24-96 Consecutive Hours (ICD-10-PCS; principal; 2019-12-05)
PROC: 02703ZZ Dilation of Coronary Artery, One Artery, Percutaneous Approach (ICD-10-PCS; 2019-12-05)
PROC: 0BH17EZ Insertion of Endotracheal Airway into Trachea, Via Natural or Artificial Opening (ICD-10-PCS; 2019-12-05)
PROC: 4A023N7 Measurement of Cardiac Sampling and Pressure, Left Heart, Percutaneous Approach (ICD-10-PCS; 2019-12-05)
PROC: B2111ZZ Fluoroscopy of Multiple Coronary Arteries using Low Osmolar Contrast (ICD-10-PCS; 2019-12-05)
DX: I21.19 ST elevation (STEMI) myocardial infarction involving other coronary artery of inferior wall (principal); J81.0 Acute pulmonary edema; J96.01 Acute respiratory failure with hypoxia; N17.9 Acute kidney failure, unspecified; E87.2 Acidosis; I48.21 Permanent atrial fibrillation; J81.1 Chronic pulmonary edema; R57.0 Cardiogenic shock; E11.22 Type 2 diabetes mellitus with diabetic chronic kidney disease; E78.5 Hyperlipidemia, unspecified; E87.5 Hyperkalemia; H57.04 Mydriasis; I12.9 Hypertensive chronic kidney disease with stage 1 through stage 4 chronic kidney disease, or unspecified chronic kidney disease; I25.10 Atherosclerotic heart disease of native coronary artery without angina pectoris; N18.9 Chronic kidney disease, unspecified; R79.1 Abnormal coagulation profile; Z66 Do not resuscitate; I25.2 Old myocardial infarction; Z79.01 Long term (current) use of anticoagulants; Z93.0 Tracheostomy status; Z86.73 Personal history of transient ischemic attack (TIA), and cerebral infarction without residual deficits; Z83.3 Family history of diabetes mellitus; Z82.3 Family history of stroke; Z82.5 Family history of asthma and other chronic lower respiratory diseases; Z82.0 Family history of epilepsy and other diseases of the nervous system; Z82.49 Family history of ischemic heart disease and other diseases of the circulatory system
CPT/HCPCS: 31500; 36415; 71045; 80048; 80053; 80061; 81001; 82435; 82550; 82570; 82803; 82947; 82948; 83605; 83735; 83874; 83935; 84100; 84132; 84295; 84300; 84443; 84484; 85018; 85025; 85610; 85730; 87077; 87088; 87186; 93005; 93454; 94002; 94003; 99156; 99157; 99291; A4344; C1769; C1887; C1894; C9113; C9600; G0378; J0282; J0610; J1644; J1650; J1815; J1940; J2250; J2370; J3010; J3475; J3490; J7030; J7040; J7060; J7070; Q9967